=== PATIENT | male | born 1990 | race African-American/Black ===

== ENCOUNTER 2020-12-29 09:10 | Emergency (ER) | payer MEDICAID ==
[~2020-12-29] VITALS: Ht 185.4 cm; Wt 100.0 kg
[2020-12-29 09:14] VITALS: BP 162/100
== END 2020-12-29 10:54 | disposition left against medical advice (07) ==
LOC: ER 09:23
DX: S40.862A Insect bite (nonvenomous) of left upper arm, initial encounter (principal); F41.9 Anxiety disorder, unspecified; S40.861A Insect bite (nonvenomous) of right upper arm, initial encounter; W57.XXXA Bitten or stung by nonvenomous insect and other nonvenomous arthropods, initial encounter; Y93.89 Activity, other specified; Y92.89 Other specified places as the place of occurrence of the external cause; Y99.8 Other external cause status
CPT/HCPCS: 99283

== ENCOUNTER 2021-01-30 00:48 | Emergency (ER) | payer MEDICAID ==
[~2021-01-30] VITALS: Ht 188 cm; Wt 84.0 kg
[2021-01-30 01:00] VITALS: BP 137/78
== END 2021-01-30 01:26 | disposition left against medical advice (07) ==
LOC: ER 00:48
DX: Z20.2 Contact with and (suspected) exposure to infections with a predominantly sexual mode of transmission (principal)
CPT/HCPCS: 99281

== ENCOUNTER 2021-03-09 22:35 | Emergency (ER) | payer MEDICAID ==
[~2021-03-09] VITALS: Ht 185.4 cm; Wt 85.0 kg
[2021-03-09] MEDS ORDERED: ONDANSETRON HCL 4MG/2ML INJ IV STA (23:25)
[2021-03-09] MEDS ORDERED: SODIUM CHLORIDE 0.9% 1,000 ML IV ONE (23:30)
[2021-03-09 23:58] LABS: *AMPHETAMINES SCREEN URINE PRESUMTIVE POSITIVE (NEGATIVE)
[2021-03-09 23:59] LABS: *BARBITURATES SCREEN URINE NEGATIVE (NEGATIVE); *BENZODIAZEPINES SCREEN URINE PRESUMTIVE POSITIVE (NEGATIVE); *COCAINE SCREEN URINE NEGATIVE (NEGATIVE); METHADONE URINE SCREEN NEGATIVE (NEGATIVE); OPIATES URINE SCREEN NEGATIVE (NEGATIVE); PHENCYCLIDINE URINE SCREEN NEGATIVE (NEGATIVE)
[2021-03-10] LABS: CANNABINOID URINE SCREEN PRESUMTIVE POSITIVE (NEGATIVE)
[2021-03-10 00:11] LABS: CHLORIDE 103 mEq/L (98-107)
[2021-03-10 00:15] LABS: ETHANOL BLOOD < 10 mg/dL
[2021-03-10 00:26] LABS: BASOPHILS % 0.4 % (0.0-2.0); EOSINOPHILS % 0.3 % (0.0-5.0); HEMATOCRIT. 40.9 % (42.0-52.0); HEMOGLOBIN. 14.4 g/dL (14.0-18.0); LYMPHOCYTES % 12.1 % (20.0-50.0); MEAN CORPUSCULAR HEMOGLOBIN 31.2 pg (28.0-32.0); MEAN CORPUSCULAR VOLUME 88.3 fL (80.0-94.0); MEAN PLATELET VOLUME 8.3 fl (7.4-10.4); MONOCYTES % 8.1 % (2.0-8.0); NEUTROPHILS % 79.1 % (40.0-76.0); PLATELET 258 x1000/uL (130-400); RED BLOOD CELL COUNT 4.62 mill/uL (4.7-6.1); RED CELL DISTRIBUTION WIDTH 13.9 % (11.6-14.6)
[2021-03-10] MEDS ORDERED: NALO4SPR BOTHNSTRLS (04:46)
[2021-03-10 05:13] VITALS: BP 137/98
== END 2021-03-10 05:46 | disposition home or self-care (01) ==
LOC: ER 22:35
DX: T43.621A Poisoning by amphetamines, accidental (unintentional), initial encounter (principal); T40.901A Poisoning by unspecified psychodysleptics [hallucinogens], accidental (unintentional), initial encounter; T40.7X1A Poisoning by cannabis (derivatives), accidental (unintentional), initial encounter; T43.691A Poisoning by other psychostimulants, accidental (unintentional), initial encounter; R41.82 Altered mental status, unspecified; Y92.488 Other paved roadways as the place of occurrence of the external cause
CPT/HCPCS: 36415; 80053; 80305; 80320; 85025; 93005; 96361; 96374; 99285; J2405; J7030; G0480

== ENCOUNTER 2021-08-16 22:43 | Emergency (ER) | payer MEDICAID ==
[~2021-08-16] VITALS: Ht 182.9 cm; Wt 100.0 kg
[~2021-08-16 22:43] MED LIST: NALO4SPR BOTHNSTRLS
[2021-08-16 22:46] VITALS: BP 125/72
== END 2021-08-16 23:00 | disposition home or self-care (01) ==
LOC: ER 22:43
DX: S00.511A Abrasion of lip, initial encounter (principal); S00.531A Contusion of lip, initial encounter; F91.8 Other conduct disorders; F15.10 Other stimulant abuse, uncomplicated; V03.90XA Pedestrian on foot injured in collision with car, pick-up truck or van, unspecified whether traffic or nontraffic accident, initial encounter; Y93.89 Activity, other specified; Y92.488 Other paved roadways as the place of occurrence of the external cause
CPT/HCPCS: 99283